=== PATIENT | male | born 1950 | race American Indian/Alaskan Native ===

== ENCOUNTER 2017-03-09 08:53 | Emergency (ER) | payer MEDICARE, OTHER ==
[2017-03-09] MEDS ORDERED: NACL 0.9% 1000 ML 1,000 ML IV ONE (09:09)
[2017-03-09 09:54] LABS: Basophils % (Auto) 0.1 % (0.0-1.8); Eosinophils % (Auto) 0.2 % (0.0-4.3); Hematocrit 34.2 % (35.5-45.6); Mean Corpuscular HGB Conc 32 % (32-34); Mean Corpuscular Hemoglobin 27 pg (28-32); Mean Corpuscular Volume 84 fl (84-94); Platelet Count 279 K/mm3 (140-440); Red Blood Count 4.06 M/mm3 (3.65-5.03); Red Cell Distribution Width 15.3 % (13.2-15.2); White Blood Count 12.1 K/mm3 (4.5-11.0)
[2017-03-09 10:06] LABS: INR 0.94 (0.87-1.13); Partial Thromboplastin Time 22.1 Sec. (24.2-36.6)
[2017-03-09 10:07] LABS: Alanine Aminotransferase 21 units/L (7-56); Albumin 3.5 g/dL (3.9-5); Albumin/Globulin Ratio 1.6 %; Alkaline Phosphatase 59 units/L (35-129); Anion Gap 16 mmol/L; Blood Urea Nitrogen 36 mg/dL (9-20); Calcium 7.8 mg/dL (8.4-10.2); Carbon Dioxide 23 mmol/L (22-30); Chloride 104.3 mmol/L (98-107); Glucose 151 mg/dL (75-100); Lipase 26 units/L (13-60); Potassium 3.5 mmol/L (3.6-5.0); Sodium 140 mmol/L (137-145); Total Protein 5.7 g/dL (6.3-8.2)
[2017-03-09 12:21] LABS: Bilirubin,Urine NEG (Negative); Blood,Urine NEG (Negative); Ketones,Urine NEG (Negative); Leukocyte Esterase,Urine NEG (Negative); Mucus,Urine FEW /HPF; Nitrite,Urine NEG (Negative); Protein,Urine <15 mg/dL mg/dL (Negative); Urobilinogen,Urine < 2.0 mg/dL (<2.0)
--- NOTE | 2017-03-09 12:28 | Emergency Department Report ---
HPI - General Chief Complaint: Dizziness Time Seen by Provider: 03/09/17 11:31 - HPI HPI: A 66-year-old -[place] male who presents the emergency department with a complaint of dizziness, generalized weakness and diaphoresis. The patient says that he was sitting in bed yesterday and felt lightheaded and we got up he noticed that he and the bed were drenched in sweat. It then happened again one time later on and the patient eventually went to sleep early at about 8 PM last evening. He said he felt wiped out at that time. It happened again this morning in which the patient got up and felt dizzy and weak and had to go back down and lay down. Patient took a laxative yesterday secondary to some recent constipation and said that he had a bowel movement today with some black stools. He says that this happened to him in the past secondary to different laxatives or medications he is taking. He denies any abdominal or rectal pain. He also went to the [facility] about one week ago and saw his primary care physician for similar symptoms and had a full workup including a CT of the head that resulted as normal. He has a past medical history of hypertension. He denies any history of OR, CVA, PE/DVT. ED Past Medical Hx - Past Medical History Previous Medical History?: Yes Hx Hypertension: Yes Additional medical history: High Cholesterol - Surgical History Past Surgical History?: No - Social History Smoking Status: Former Smoker Substance Use Type: Alcohol - Medications Home Medications: Home Medications Medication Instructions Recorded Confirmed Last Taken Type Pantoprazole [Protonix] 40 mg PO QDAY #20 tablet 03/09/17 Unknown Rx ED Review of Systems ROS: Stated complaint: GENERAL WEAKNESS Other details as noted in HPI Comment: All other systems reviewed and negative Constitutional: diaphoresis, weakness Eyes: denies: eye pain, eye discharge, vision change ENT: denies: ear pain, throat pain Respiratory: denies: cough, shortness of breath, wheezing Cardiovascular: denies: chest pain, palpitations Gastrointestinal: melena. denies: abdominal pain, nausea, diarrhea Genitourinary: denies: urgency, dysuria Musculoskeletal: denies: back pain, joint swelling, arthralgia Skin: denies: rash, lesions Neurological: other (dizziness, lightheadedness). denies: headache, numbness, paresthesias Physical Exam - Physical Exam Vital Signs: Vital Signs 03/09/17 03/09/17 03/09/17 08:59 11:01 12:23 Temperature 97.2 F L 98.4 F Pulse Rate 102 H 20 L Pulse Rate [ 82 Lying] Respiratory 16 20 Rate Blood Pressure 137/82 Blood Pressure 131/73 [Left] Blood Pressure 158/75 [Lying] O2 Sat by Pulse 100 99 Oximetry Physical Exam: GENERAL: The patient is well-developed well-nourished. ENT: Normocephalic. Atraumatic. Patient has moist mucous membranes. EYES: Extraocular motions are intact. Pupils equal reactive to light bilaterally. No nystagmus. NECK: Supple. Trachea is mid line. CHEST/LUNGS: Clear to auscultation. There is no respiratory distress noted. HEART/CARDIOVASCULAR: Regular rhythm. Regular rate. There is no gallop rub or murmur. ABDOMEN: Abdomen is soft, nontender. Patient has normal bowel sounds. There is no abdominal distention. SKIN: Skin is warm and dry. NEURO: The patient is awake, alert, and oriented. The patient is cooperative. The patient has no sensory or motor deficits. The patient has normal speech and gait. Cranial nerves II through XII grossly intact. No pronator drift. No dysmetria. MUSCULOSKELETAL: There is no tenderness or deformity. There is no limitation range of motion. There is no evidence of acute injury. RECTAL: There is dark melanotic stool that is guaiac positive. ED Course Vital Signs 03/09/17 03/09/17 03/09/17 08:59 11:01 12:23 Temperature 97.2 F L 98.4 F Pulse Rate 102 H 20 L Pulse Rate [ 82 Lying] Respiratory 16 20 Rate Blood Pressure 137/82 Blood Pressure 131/73 [Left] Blood Pressure 158/75 [Lying] O2 Sat by Pulse 100 99 Oximetry ED Medical Decision Making - Lab Data Result diagrams: 03/09/17 09:28 03/09/17 09:28 - EKG Data -: EKG Interpreted by Me EKG shows normal: sinus rhythm, axis (right axis deviation), intervals, QRS complexes, ST-T waves Rate: normal - EKG Data When compared to previous EKG there are: previous EKG unavailable Interpretation: normal EKG (with right axis deviation) - Radiology Data Radiology results: report reviewed CT of the head does not show any acute bleed, shift, mass, ischemia or skull fracture. - Medical Decision Making 66-year-old male presents after having some episodes of nonspecific dizziness or lightheadedness along with some diaphoresis. He also complained of some melanotic stool. Physical exam there is no focal, motor or sensory deficits and his cranial nerves are intact. He does not have any abdominal pain but he gave a stool sample but doesn't fact appear melanotic and was guaiac positive. His labs are mostly unremarkable and do not show any etiology of his symptoms. He had a CT of the head that did not show any bleed, shift, mass or any acute intercranial process. EKG does not show any signs of ST elevation OR or dysrhythmia. 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 He was given some IV fluid resuscitation and upon reevaluation he says he is feeling greatly improved. He was seen in the torn in the emergency department multiple times and appears stable during so. He no longer complains of any of this dizziness or lightheadedness. He already is set up to have a colonoscopy by a silk screen printing racker through the [facility]. He was started on Protonix by mouth and encouraged to return to the emergency Department with any worsening of his symptoms or any acute distress. - Differential Diagnosis vertigo, orthostatic hypotension, TIA, vasovagal Critical Care Time: No Critical care attestation.: If time is entered above; I have spent that time in minutes in the direct care of this critically ill patient, excluding procedure time. ED Disposition Clinical Impression: Melena, Dizziness, Lightheaded Hypertension Qualifiers: Hypertension type: unspecified Qualified Code(s): I10 - Essential (primary) hypertension Disposition: - TO HOME OR SELFCARE Is pt being admited?: No Condition: Stable Instructions: Rectal Bleeding (ED), Hypertension (ED), Near Syncope (ED), Lightheadedness (ED), Dizziness (ED) Additional Instructions: Follow-up with your primary care physician and/or silk screen printing racker as soon as possible. Return to the emergency Department with any worsening of her symptoms or any acute distress. Prescriptions: Pantoprazole [Protonix] 40 mg PO QDAY #20 tablet Referrals: VIKKI EL MD [Primary Care Provider] - [facility] Time of Disposition: 15:26
[2017-03-09 15:57] VITALS: BP 142/77
== END 2017-03-09 16:00 | disposition home or self-care (01) ==
LOC: ED 08:53
DX: I10 Essential (primary) hypertension (principal); K92.1 Melena; R42 Dizziness and giddiness
CPT/HCPCS: 36415; 80053; 81001; 83690; 84443; 84484; 85025; 85610; 85730; 86850; 86900; 86901; 87086; 93005; 93010; 96360; 96361; 99284; J7030